=== PATIENT | male | born 1990 | race Caucasian/White ===

== ENCOUNTER 2017-03-03 19:30 | Emergency (ER) | payer MEDICAID, OTHER ==
[2017-03-03 19:56] VITALS: BP 137/83
[2017-03-03] MEDS ORDERED: Naproxen 500 MG Tab PO ONE (20:22)
--- NOTE | 2017-03-03 20:27 | EDM.PDOC ---
ED HPI GENERAL MEDICAL PROBLEM - General Chief Complaint: General Stated Complaint: TOOTH PAIN LEFT SIDE Time Seen by Provider: 03/03/17 19:55 Source of Information: Reports: Patient, RN notes reviewed History Limitations: Reports: No limitations - History of Present Illness INITIAL COMMENTS - FREE TEXT/NARRATIVE: The patient states that he developed a lower left to take about 2 days ago. He believes it is his wisdom tooth. No recent oral drainage. No recent fever. He states that he has had this problem in the past, that he went to a dentist, who instructed him to go to an oral surgeon, however, he states that he cannot afford it. Tooth/Teeth Pain Score (Numeric/FACES): 8 - Related Data Allergies Allergy/AdvReac Type Severity Reaction Status Date / Time No Known Allergies Allergy Verified 03/03/17 19:53 Home Meds: Home Meds Dextroamphetamine/Amphetamine [Adderall] 30 mg PO DAILY 10/02/14 [History] Naproxen 1 tab PO Q12H PRN #20 tablet 03/03/17 [Rx] Past Medical History Psychiatric History: Reports: ADD - Past Surgical History HEENT Surgical History: Reports: Tonsillectomy Dermatological Surgical History: Reports: Skin graft (to forehead) Social & Family History - Tobacco Use Smoking Status *Q: Current Every Day Smoker Years of Tobacco use: 9 Packs/Tins Daily: 1 - Alcohol Use Alcohol Use History: No - Recreational Drug Use Recreational Drug Use: No - Living Situation & Occupation Living situation: Reports: single, with family (Mother) Occupation: student ([employer]) ED ROS GENERAL - Review of Systems Review Of Systems: See Below Constitutional: Reports: no symptoms HEENT: Reports: No symptoms Respiratory: Reports: No Symptoms Cardiovascular: Reports: No symptoms Endocrine: Reports: no symptoms GI/Abdominal: Reports: No symptoms : Reports: no symptoms Musculoskeletal: Reports: no symptoms Skin: Reports: no symptoms Neurological: Reports: No Symptoms Psychiatric: Reports: No symptoms Hematologic/Lymphatic: Reports: no symptoms Immunologic: Reports: no symptoms ED EXAM, GENERAL - Physical Exam Exam: See Below Exam Limited By: No limitations General Appearance: alert, WD/WN, no apparent distress Eye Exam: bilateral eye: EOMI, normal inspection Ears: normal external exam, normal canal, hearing grossly normal, normal TMs Ear Exam: bilateral ear: auricle normal, canal normal, TM normal Nose: normal inspection, normal mucosa, no blood Throat/Mouth: Normal inspection, Normal lips, Normal teeth (No visible abnormality to any of the patient's teeth. All wisdom teeth are present. No gingival swelling or pointing.), Normal gums, Normal oropharynx, Normal voice, No airway compromise Head: atraumatic, normocephalic Neck: normal inspection, supple, non-tender, full range of motion. No: lymphadenopathy (L), lymphadenopathy (R) Course - Vital Signs Last Recorded V/S: Last Vital Signs Temp 37.1 C 03/03/17 19:53 Pulse 80 03/03/17 19:53 Resp 14 03/03/17 19:53 BP 137/83 03/03/17 19:53 Pulse Ox 100 03/03/17 19:53 - Re-Assessments/Exams Free Text/Narrative Re-Assessment/Exam: 03/03/17 20:21 On examination of the patient's teeth, I see no acute abnormality or suggestion of an infection, such as gingival swelling or pointing. I suspect that the pain the patient is experiencing is due to an impacted wisdom tooth. He has been told this in the past, but states that he can't afford the oral surgery. Nevertheless, I do not see an indication to prescribe an opioid. I will e- prescribe naproxen. He was upset when I informed him of this, stating that he has been here several times in the past, and that he has been prescribed opiods each time. Departure - Departure Time of Disposition: 20:22 Disposition: Home, Self-Care 01 Condition: good Clinical Impression: Dentalgia Forms: ED Department Discharge Additional Instructions: You were seen in the emergency room for a lower left toothache. On examination, no infection or obvious abnormality is seen. Your pain is MOST LIKELY due to an impacted wisdom tooth. You have been started on the pain medicine naproxen. Take one tablet every 12 hours, with food, as prescribed. It is IMPERATIVE that you followup with an oral surgeon to have this taken care of. The emergency room in is not equipped to deal with dental issues. If any other problems, please do not hesitate to return to the ER.
== END 2017-03-03 20:40 | disposition home or self-care (01) ==
LOC: JD.ED 19:30
DX: K08.89 Other specified disorders of teeth and supporting structures (principal); F17.210 Nicotine dependence, cigarettes, uncomplicated; Z98.890 Other specified postprocedural states; Z79.899 Other long term (current) drug therapy
CPT/HCPCS: 99283; A9270; 99282